=== PATIENT | female | born 1960 | race Caucasian/White ===

== ENCOUNTER 2020-03-16 10:30 | Outpatient (CLI) | payer OTHER | END 2020-03-16 10:31 | disposition home or self-care (01) | LOC: COV 10:30 | PROVIDERS: ATTEND Family Medicine | DX: Z20.828 Contact with and (suspected) exposure to other viral communicable diseases (principal) ==

== ENCOUNTER 2023-11-27 08:00 | Outpatient (CLI) | payer OTHER ==
--- NOTE | 2023-11-27 15:12 | XRAY Report ---
Toe(s) 2+V LT HISTORY: 63 years of age, PAIN IN LEFT GREAT TOE TECHNIQUE: Toe(s) 2+V LT COMPARISON: None. FINDINGS/IMPRESSION: Left first toe: Mild degenerative changes of first metatarsophalangeal joint. Mild subchondral lucenc y in the base of the first metatarsal, favoring degenerative. No acute fracture or dislocation. Reviewed by: Paula Smith MD on 11/27/2023 3:11 PM PDT Approved by: Paula Smith MD on 11/27/2023 3:11 PM PDT Station ID: [id number]
== END 2023-11-27 23:59 | disposition home or self-care (01) ==
LOC: DI.S 08:00
PROVIDERS: ATTEND Registered Nurse
DX: M19.072 Primary osteoarthritis, left ankle and foot (principal)
CPT/HCPCS: 73660